=== PATIENT | female | born 1950 ===

== ENCOUNTER 2017-08-26 13:13 | Outpatient (CLI) | payer OTHER ==
[~2017-08-26] VITALS: Ht 165.1 cm; Wt 79.4 kg
== END 2017-08-26 13:30 | disposition home or self-care (01) ==
LOC: OFIC 805 13:13
DX: K21.9 Gastro-esophageal reflux disease without esophagitis (principal); H93.13 Tinnitus, bilateral; H90.3 Sensorineural hearing loss, bilateral; J39.2 Other diseases of pharynx